=== PATIENT | female | born 1940 | race Asian ===

== ENCOUNTER 2018-08-30 15:46 | Inpatient (IN) | payer MEDICARE, OTHER ==
[~2018-08-30] VITALS: Ht 152.4 cm; Wt 55.7 kg
[~2018-08-30 15:46] MED LIST: ASPI-556 PO; GLUC100019 PO; ISOS1POW MC; LISI-660 PO; METF-960 PO
[2018-08-30 16:33] LABS: GLUCOSE,POINT OF CARE 221 MG/DL (70-110)
[2018-08-30 17:00] LABS: HEMATOCRIT 34.7 % (36-46); HEMOGLOBIN 10.2 g/dL (12.0-16.0); MEAN CORPUSCULAR HEMOGLOBIN 21.8 pg (26.0-34.0); MEAN CORPUSCULAR HGB CONC 29.3 G/dL (31.0-37.0); MEAN CORPUSCULAR VOLUME 74 fL (80-100); PLATELET COUNT (AUTO) 188 K/uL (150-450); RED BLOOD CELL COUNT(AUTO) 4.67 MIL/uL (4.00-5.20); RED CELL DISTRIBUTION WIDTH 18.8 % (11.5-14.5)
[2018-08-30 17:18] LABS: APPEARANCE,URINE CLOUDY (CLEAR); GLUCOSE, URINE (UA) 100 mg/dL (NEGATIVE); KETONES,URINE NEGATIVE (NEGATIVE); LEUKOCYTE ESTERASE ,URINE NEGATIVE (NEGATIVE); NITRATE,URINE NEGATIVE (NEGATIVE); OCCULT BLOOD,URINE NEGATIVE (NEGATIVE); PH,URINE 5.5 (5.0-8.0); PROTEIN,URINE SEE CONFIRM (NEGATIVE)
[2018-08-30 17:20] LABS: BILIRUBIN,URINE PRELIM. POSITIVE (NEGATIVE)
[2018-08-30 17:22] LABS: TROPONIN I 0.09 ng/mL (0.00-0.05)
[2018-08-30 17:33] LABS: BACTERIA,URINE Rare /HPF (None Seen); RBC,URINE 0-2 /HPF (0-2); SQUAMOUS EPITHELIAL CELL,UR Moderate /LPF (None Seen); SULFOSALICYLIC ACID,URINE 2+ (Negative); WBC,URINE 0-2 /HPF (0-5)
[2018-08-30 18:05] LABS: B-TYPE NATRIURETIC PEPTIDE 1740 pg/mL (0-100)
[2018-08-30 18:08] LABS: ANION GAP 13 mmol/L (8-16); CALCIUM, TOTAL 8.6 mg/dL (8.8-10.5); CARBON DIOXIDE 19 mmol/L (22-29); CHLORIDE 106 mmol/L (98-107); CREATININE 1.44 mg/dL (0.60-1.30); GLOMERULAR FILTR. RATE CALC 35 mL/min (>60); GLUCOSE,RANDOM 207 mg/dL (70-110); POTASSIUM 4.7 mmol/L (3.5-5.1); SODIUM SERUM 138 mmol/L (136-145); UREA NITROGEN, BLOOD 35 mg/dL (7-18)
[2018-08-30 18:16] LABS: ALANINE AMINOTRANSFERASE 32 U/L (12-78); ALKALINE PHOSPHATASE 109 U/L (46-116); ASPARTATE AMINOTRANSFERASE 34 U/L (15-37); BILIRUBIN,TOTAL 1.4 mg/dL (0.1-1.0); TOTAL PROTEIN, SERUM 7.4 g/dL (6.4-8.2)
[2018-08-30] MEDS ORDERED: DEXTROSE 50%-WATER 25 GM/50 ML SYRINGE IVP PRN (19:00)
[2018-08-30] MEDS ORDERED: IPRATROPIUM BROMIDE 0.5 MG/2.5 ML NEB SOLUTION NEB PRN (19:15)
[2018-08-30] MEDS ORDERED: 0.9% SODIUM CHLORIDE 10 ML SYRINGE IVP PRN (19:15)
[2018-08-30] MEDS ORDERED: MAGNESIUM HYDROXIDE SUSPENSION 30 ML UDCUP PO PRN (19:15)
[2018-08-30] MEDS ORDERED: ALBUTEROL SULFATE 2.5 MG/0.5 ML NEB SOLUTION NEB PRN (19:15)
[2018-08-30] MEDS ORDERED: ONDANSETRON HCL 4 MG/2 ML VIAL IVP PRN (19:15)
[2018-08-30] MEDS ORDERED: BISACODYL 10 MG RECTAL RECTAL SUPPOSITORY PR PRN (19:15)
[2018-08-30] MEDS ORDERED: ACETAMINOPHEN 325 MG TABLET PO PRN (19:15)
[2018-08-30] MEDS ORDERED: HEPARIN SODIUM,PORCINE 5,000 UNITS/ML VIAL SQ SCH (21:00)
[2018-08-30 21:17] LABS: BAND NEUTROPHILS % (MANUAL) 5 % (0-5); BASOPHILS % (MANUAL) 1 % (0-2); LYMPHOCYTES % (MANUAL) 26 % (22-44); MONOCYTES % (MANUAL) 6 % (2-9); SEGMENTED NEUTROPHILS % 62 % (40-70)
[2018-08-30 21:18] LABS: PLATELET MORPHOLOGY COMMENT GIANT PLTS PRESENT
[2018-08-30] MEDS: ASPIRIN 81 MG CHEWABLE TABLET PO SCH (21:36)
[2018-08-30] MEDS: FAMOTIDINE 20 MG TABLET PO SCH (21:36)
[2018-08-30 21:39] VITALS: BP 136/71
[2018-08-30] MEDS: INSULIN LISPRO 100 UNITS/ML SQ PRN (21:42)
[2018-08-30] MEDS: SODIUM CHLORIDE 0.9% 500 ML IV SCH (23:11)
[2018-08-31] VITALS (7 sets, daily range): BP systolic 127–147; BP diastolic 77–92
[2018-08-31] MEDS: SODIUM CHLORIDE 0.9% 500 ML IV SCH ×2 (05:20→21:33)
[2018-08-31 05:52] LABS: HEMATOCRIT 32.5 % (36-46); HEMOGLOBIN 9.8 g/dL (12.0-16.0); LYMPHOCYTES # (AUTO) 1.9 K/uL (1.0-4.8); LYMPHOCYTES % (AUTO) 29.9 % (22.0-44.0); MEAN CORPUSCULAR HEMOGLOBIN 22.2 pg (26.0-34.0); MEAN CORPUSCULAR HGB CONC 30.3 G/dL (31.0-37.0); MEAN CORPUSCULAR VOLUME 73 fL (80-100); MONOCYTES # (AUTO) 0.7 K/uL (0.1-1.0); MONOCYTES % (AUTO) 10.7 % (2.0-9.0); NEUTROPHILS # (AUTO) 3.4 K/uL (1.8-7.7); NEUTROPHILS % (AUTO) 55.4 % (40.0-70.0); PLATELET COUNT (AUTO) 180 K/uL (150-450); RED BLOOD CELL COUNT(AUTO) 4.43 MIL/uL (4.00-5.20); RED CELL DISTRIBUTION WIDTH 18.3 % (11.5-14.5)
[2018-08-31 07:02] LABS: ALBUMIN 2.7 g/dL (3.4-5.0); BILIRUBIN,TOTAL 1.3 mg/dL (0.1-1.0); CALCIUM, TOTAL 8.5 mg/dL (8.8-10.5); CREATININE 1.26 mg/dL (0.60-1.30); FREE T4 (FREE THYROXINE) 1.52 ng/dL (0.76-1.46); POTASSIUM 4.2 mmol/L (3.5-5.1); THYROID STIMULATING HORMONE 4.26 uIU/mL (0.36-3.74); TOTAL PROTEIN, SERUM 6.9 g/dL (6.4-8.2)
[2018-08-31 07:38] LABS: % IRON SATURATION 3.8 % (22-44)
[2018-08-31 07:42] LABS: HEMOGLOBIN A1C 9.6 % (4.5-6.2)
[2018-08-31] MEDS: FAMOTIDINE 20 MG TABLET PO SCH ×2 (09:42→21:34)
[2018-08-31] MEDS: ASPIRIN 81 MG CHEWABLE TABLET PO SCH (09:42)
[2018-08-31 10:08] LABS: GLUCOMETER DEV NAME(LOC) 5N.1; GLUCOSE,POINT OF CARE 169 MG/DL (70-110)
[2018-08-31 10:09] LABS: GLUCOMETER DEV NAME(LOC) 5N.1; GLUCOSE,POINT OF CARE 118 MG/DL (70-110)
[2018-08-31] MEDS: INSULIN LISPRO 100 UNITS/ML SQ PRN ×2 (12:06→17:32)
[2018-08-31] MEDS: LISINOPRIL 5 MG TABLET PO SCH (15:41)
[2018-08-31] MEDS: HEPARIN SODIUM,PORCINE 5,000 UNITS/ML VIAL SQ SCH (21:34)
[2018-08-31] MEDS: CARVEDILOL 3.125 MG TABLET PO SCH (21:34)
[2018-08-31] MEDS ORDERED: 0.9% SODIUM CHLORIDE 5 ML NEB SOLUTION NEB ONE (22:28)
[2018-09-01] VITALS (7 sets, daily range): BP systolic 116–139; BP diastolic 55–85
[2018-09-01 05:45] LABS: GLUCOMETER DEV NAME(LOC) 5S.1; GLUCOSE,POINT OF CARE 138 MG/DL (70-110)
[2018-09-01] MEDS: SODIUM CHLORIDE 0.9% 500 ML IV SCH (06:51)
[2018-09-01 07:49] LABS: GLUCOMETER DEV NAME(LOC) 5N.1; GLUCOSE,POINT OF CARE 111 MG/DL (70-110)
[2018-09-01 07:49] LABS: GLUCOMETER DEV NAME(LOC) 5N.1; GLUCOSE,POINT OF CARE 215 MG/DL (70-110)
[2018-09-01 07:49] LABS: GLUCOMETER DEV NAME(LOC) 5N.1; GLUCOSE,POINT OF CARE 130 MG/DL (70-110)
[2018-09-01] MEDS: CARVEDILOL 3.125 MG TABLET PO SCH ×2 (09:00→21:31)
[2018-09-01] MEDS: ASPIRIN 81 MG CHEWABLE TABLET PO SCH (09:14)
[2018-09-01] MEDS: HEPARIN SODIUM,PORCINE 5,000 UNITS/ML VIAL SQ SCH ×2 (09:14→20:35)
[2018-09-01] MEDS: LISINOPRIL 5 MG TABLET PO SCH (09:14)
[2018-09-01] MEDS: FAMOTIDINE 20 MG TABLET PO SCH ×2 (09:14→20:35)
[2018-09-01] MEDS: FUROSEMIDE 20 MG TABLET PO SCH (12:36)
[2018-09-01] MEDS: INSULIN LISPRO 100 UNITS/ML SQ PRN (12:39)
[2018-09-01 17:19] LABS: GLUCOMETER DEV NAME(LOC) 5N.2; GLUCOSE,POINT OF CARE 191 MG/DL (70-110)
[2018-09-01 19:39] LABS: GLUCOMETER DEV NAME(LOC) 5N.1; GLUCOSE,POINT OF CARE 108 MG/DL (70-110)
[2018-09-01] MEDS: DOCUSATE SODIUM 100 MG CAPSULE PO PRN (20:35)
[2018-09-02 00:59] LABS: GLUCOMETER DEV NAME(LOC) 5S.1; GLUCOSE,POINT OF CARE 95 MG/DL (70-110)
[2018-09-02 05:55] VITALS: BP 143/88
[2018-09-02 06:02] LABS: CALCIUM, TOTAL 8.7 mg/dL (8.8-10.5); CREATININE 1.2 mg/dL (0.60-1.30); POTASSIUM 4.9 mmol/L (3.5-5.1)
[2018-09-02 07:22] VITALS: BP 140/79
[2018-09-02] MEDS: LISINOPRIL 5 MG TABLET PO SCH (09:13)
[2018-09-02] MEDS: DOCUSATE SODIUM 100 MG CAPSULE PO PRN (09:13)
[2018-09-02] MEDS: ASPIRIN 81 MG CHEWABLE TABLET PO SCH (09:13)
[2018-09-02] MEDS: CARVEDILOL 3.125 MG TABLET PO SCH (09:13)
[2018-09-02] MEDS: FUROSEMIDE 20 MG TABLET PO SCH (09:13)
[2018-09-02] MEDS: HEPARIN SODIUM,PORCINE 5,000 UNITS/ML VIAL SQ SCH (09:14)
[2018-09-02] MEDS: FAMOTIDINE 20 MG TABLET PO SCH (09:15)
[2018-09-02 11:11] VITALS: BP 142/86
[2018-09-02] MEDS: INSULIN LISPRO 100 UNITS/ML SQ PRN (12:06)
[2018-09-02 15:45] VITALS: BP 110/52
[2018-09-02 20:09] LABS: GLUCOMETER DEV NAME(LOC) 5N.2; GLUCOSE,POINT OF CARE 91 MG/DL (70-110)
[2018-09-02 20:09] LABS: GLUCOMETER DEV NAME(LOC) 5N.2; GLUCOSE,POINT OF CARE 173 MG/DL (70-110)
== END 2018-09-02 19:00 | DRG 683 ==
LOC: EMS 15:47 → 5S 18:36
PROVIDERS: ADMIT Internal Medicine; ATTEND Internal Medicine
DX: N17.9 Acute kidney failure, unspecified (principal); I25.110 Atherosclerotic heart disease of native coronary artery with unstable angina pectoris; E87.2 Acidosis; E44.0 Moderate protein-calorie malnutrition; I50.22 Chronic systolic (congestive) heart failure; I43 Cardiomyopathy in diseases classified elsewhere; D50.9 Iron deficiency anemia, unspecified; I48.0 Paroxysmal atrial fibrillation; E11.65 Type 2 diabetes mellitus with hyperglycemia; E07.9 Disorder of thyroid, unspecified; I65.29 Occlusion and stenosis of unspecified carotid artery; E11.22 Type 2 diabetes mellitus with diabetic chronic kidney disease; F03.90 Unspecified dementia, unspecified severity, without behavioral disturbance, psychotic disturbance, mood disturbance, and anxiety; I12.9 Hypertensive chronic kidney disease with stage 1 through stage 4 chronic kidney disease, or unspecified chronic kidney disease; N18.2 Chronic kidney disease, stage 2 (mild); Z95.0 Presence of cardiac pacemaker; R94.6 Abnormal results of thyroid function studies; Z79.82 Long term (current) use of aspirin; Z68.24 Body mass index [BMI] 24.0-24.9, adult; Z79.890 Hormone replacement therapy; Z79.899 Other long term (current) drug therapy
CPT/HCPCS: 70450; 82270; 82728; 83036; 83540; 83550; 83605; 84439; 84443; 87040; 93005; 93306; 93880; 94640; 97116; 97161; 97166; 97530; 97535; G0378; G0480; J1644; J7040